=== PATIENT | male | born 1955 | race Caucasian/White ===

== ENCOUNTER → 2017-02-08 | Outpatient (CLI) | payer BC ==
[~2017-02-08] MED LIST: CEPHALEXIN500 M1 PO; LORTAB 5/500 501 TAB PO; MOBIC 7.5MG7.5 MG PO; NEURONTIN300 MG/CAP PO; ULTRAM 50MG TAB50 MG PO
== END ==
LOC: COL.LAB 16:24
DX: K21.0 Gastro-esophageal reflux disease with esophagitis (principal); M11.80 Other specified crystal arthropathies, unspecified site

== ENCOUNTER → 2017-10-03 | Outpatient (CLI) | payer BC | LOC: COL.VAS 14:00 | DX: M19.071 Primary osteoarthritis, right ankle and foot (principal); M79.89 Other specified soft tissue disorders ==

== ENCOUNTER 2020-05-20 17:12 | Emergency (ER) | payer BC ==
[2020-05-20 17:36] VITALS: TEMP 97
[2020-05-20 18:24] LABS: BASO % 0.5 % (0.0-2.0); EOS # 0.2 (0.0-0.7); EOS % 2.5 % (0-4.0); GRAN # 3.2 (1.4-6.5); GRAN % 51.5 % (42.2-75.2); HEMATOCRIT 43.5 % (42.0-52.0); HEMOGLOBIN 14.9 g/dl (13.5-18.0); LYMPH # 2.3 (1.2-3.4); LYMPH % 35.8 % (20.0-51.0); MEAN CELL VOLUME 90 fl (80.0-100.0); MEAN CORPUSCULAR HEMOGLOBIN 31 pg (27.0-31.0); MEAN CORPUSCULAR HGB CONC 34 g/dl (33.0-37.0); MEAN PLATELET VOLUME 10.9 fl (7.4-10.4); MONO # 0.6 (0.1-0.6); MONO % 9.4 % (1.7-9.3); PLATELET COUNT 200 K/mm3 (130-400); RED BLOOD COUNT 4.82 M/mm3 (4.20-5.60); REDCELL DISTRIBUTION WIDTH-CV 11.9 % (11.5-14.5)
[2020-05-20 18:25] LABS: ALANINE AMINOTRANSFERASE 31 U/L (4-49); ALBUMIN 4.1 gm/dL (3.5-5.0); ALKALINE PHOSPHATASE 58 U/L (50-136); ANION GAP 8 mmol/L (7-16); AST,SGOT 28 U/L (15-37); BILIRUBIN,TOTAL 0.5 mg/dL (0.0-1.0); BLOOD UREA NITROGEN 20 mg/dL (9-20); CARBON DIOXIDE 27 mmol/L (22-30); CHLORIDE 101 mmol/L (98-107); CREATININE, serum 0.79 (0.66-1.25); GLUCOSE 91 mg/dL (74-106); POTASSIUM 4.2 mmol/L (3.4-5.0); SODIUM 135 mmol/L (137-145); TOTAL PROTEIN 7.2 gm/dL (6.4-8.2)
[2020-05-20 18:29] LABS: C-REACTIVE PROTEIN < 0.5 mg/dL (0.0-0.9)
[2020-05-20 18:34] LABS: TROPONIN-I < 0.012 ng/mL (0.000-0.035)
[2020-05-20 20:25] VITALS: BP 139/89; PULSE 70
[2020-05-20] MEDS ORDERED: PREDNISONE20 MG PO (20:26)
== END 2020-05-20 20:36 | disposition home or self-care (01) ==
LOC: COL.ER 17:12
PROVIDERS: Nurse Practitioner
DX: R06.02 Shortness of breath (principal); U07.1 COVID-19; M19.90 Unspecified osteoarthritis, unspecified site; Z88.8 Allergy status to other drugs, medicaments and biological substances; Z79.1 Long term (current) use of non-steroidal anti-inflammatories (NSAID); Z79.2 Long term (current) use of antibiotics
CPT/HCPCS: J7512; Q9967

== ENCOUNTER → 2020-11-19 | Outpatient (CLI) | payer BC ==
[~2020-11-19] MED LIST changes: +PREDNISONE20 MG PO
== END ==
LOC: MHCPAIN 08:23
DX: M47.817 Spondylosis without myelopathy or radiculopathy, lumbosacral region (principal); M96.1 Postlaminectomy syndrome, not elsewhere classified; M53.3 Sacrococcygeal disorders, not elsewhere classified; G89.29 Other chronic pain
CPT/HCPCS: G0463

== ENCOUNTER → 2020-11-20 | Outpatient (CLI) | payer BC | LOC: MHCPAIN 14:06 | DX: M47.818 Spondylosis without myelopathy or radiculopathy, sacral and sacrococcygeal region (principal); M53.3 Sacrococcygeal disorders, not elsewhere classified | CPT/HCPCS: G0260; J1040; Q9967 ==

== ENCOUNTER → 2020-11-25 | Outpatient (CLI) | payer BC | LOC: MHCPAIN 14:16 | DX: M47.817 Spondylosis without myelopathy or radiculopathy, lumbosacral region (principal); M53.3 Sacrococcygeal disorders, not elsewhere classified; M54.5 Low back pain; G89.29 Other chronic pain | CPT/HCPCS: G0463 ==

== ENCOUNTER → 2020-12-04 | Outpatient (CLI) | payer BC | LOC: MHCPAIN 07:51 | DX: M47.817 Spondylosis without myelopathy or radiculopathy, lumbosacral region (principal); M54.5 Low back pain ==

== ENCOUNTER 2020-12-23 16:00 | Outpatient (RCR) | payer BC | END 2021-01-15 13:34 | disposition home or self-care (01) | LOC: WSC 16:00 | DX: M51.36 Other intervertebral disc degeneration, lumbar region (principal); M54.16 Radiculopathy, lumbar region; M48.062 Spinal stenosis, lumbar region with neurogenic claudication; M47.812 Spondylosis without myelopathy or radiculopathy, cervical region ==

== ENCOUNTER → 2021-01-01 | Outpatient (CLI) | payer BC | LOC: MHCPAIN 08:50 | DX: M47.817 Spondylosis without myelopathy or radiculopathy, lumbosacral region (principal); M54.5 Low back pain; M53.3 Sacrococcygeal disorders, not elsewhere classified | CPT/HCPCS: G0463 ==

== ENCOUNTER → 2021-01-12 | Outpatient (CLI) | payer BC | LOC: MHCPAIN 10:27 | DX: M47.817 Spondylosis without myelopathy or radiculopathy, lumbosacral region (principal); M54.5 Low back pain; M53.3 Sacrococcygeal disorders, not elsewhere classified | CPT/HCPCS: G0463; J1100; J2250; J3010 ==

== ENCOUNTER → 2021-01-15 | Outpatient (CLI) | payer BC | LOC: MHCPAIN 07:37 | DX: M47.817 Spondylosis without myelopathy or radiculopathy, lumbosacral region (principal); M54.5 Low back pain; M53.3 Sacrococcygeal disorders, not elsewhere classified | CPT/HCPCS: J1100; J2250; J3010 ==

== ENCOUNTER 2021-05-28 14:31 | Outpatient (RCR) | payer BC | END 2021-07-17 | LOC: WSOT | DX: G56.03 Carpal tunnel syndrome, bilateral upper limbs (principal) ==

== ENCOUNTER → 2021-05-28 | Outpatient (CLI) | payer BC | LOC: COL.RAD 08:32 | DX: M48.02 Spinal stenosis, cervical region (principal) | CPT/HCPCS: A9585 ==

== ENCOUNTER → 2022-05-20 | Outpatient (CLI) | payer BC | LOC: COL.PUL 07:41 | DX: R06.09 Other forms of dyspnea (principal); R06.02 Shortness of breath ==

== ENCOUNTER → 2023-08-01 | Outpatient (CLI) | payer MEDICARE, BC | LOC: COL.RAD 08:20 | DX: R91.1 Solitary pulmonary nodule (principal) | CPT/HCPCS: Q9967 ==